=== PATIENT | male | born 1930 | race Caucasian/White ===

== ENCOUNTER 2016-05-13 19:04 | Emergency (ER) | payer OTHER ==
[~2016-05-13] VITALS: Ht 175.3 cm; Wt 80.0 kg
[~2016-05-13 19:04] MED LIST: HYDR-3288 PO; METO25TA3 PO; WALKER/ADULT/FO1 MIS; XARE10TA PO
[2016-05-13 19:21] VITALS: BP 133/85; PULSE 104; RESP 20; TEMP 98.2; O2SAT 95
[2016-05-13] MEDS ORDERED: MEMA21CA PO (21:18)
[2016-05-13] MEDS ORDERED: REME15TA PO (21:18)
[2016-05-13] MEDS ORDERED: SODIUM CHLORID 0.9% 500 ML INJ 500 ML IV ONE (21:45)
--- NOTE | 2016-05-13 21:51 | PD ---
HPI Chief Complaint: General Weakness Time Seen by Provider: 21:17 Travel History International Travel<30 days: No Contact w/Intl Traveler<30days: No Traveled to known affect area: No History of Present Illness HPI The patient is an 86 year old male who presents to the [facility] emergency department with a history of frequent falls, with reportedly falling prior to arrival. The patient himself is unable to provide any history. He reports that he does not know why he is in the emergency department. The patient is noted to have dried blood on his lips. The patient is noted to have a 1 cm laceration to the right side of his upper lip in the mucosa. The patient is noted to have poor dentition. He denies feeling any loosening of his teeth. The patient adamantly refuses to have any sutures placed in his laceration. He reports that he prefers to have this heal on its own. Patient cannot recall whether he tripped and fell. The patient is noted to have an older appearing bruise with palpable hematoma in the submandibular area. The patient according to the record is on Xarelto. The patient denies having any pain. The patient reports that he just wants to sleep. The patient was able to roll himself from his right side onto his back. The patient on examination is noted to have swelling and ecchymosis to the right hand. This is touched he does report having pain. He is unsure when this occurred. He denies having any lower extremity pain. He has full range of motion of his legs. According to the patient's shelter record he does have a history of dementia. [facility] Past Medical History Narrative Medical The patient's past medical history is significant for a fall and December 2015 with associated rhabdomyolysis, dehydration, and a left femoral neck fracture, dementia, history of prostate cancer, history of skin cancer. Arthritis: No Asthma: No Autoimmune Disease: No Anxiety: No Depression: No Heart Rhythm Problems: No Cancer: Yes (SKIN CA, PROSTATE CA) Cardiovascular Problems: No High Cholesterol: No Chemotherapy: No Chest Pain: No Congestive Heart Failure: No COPD: No Cerebrovascular Accident: No Diabetes: No Diminished Hearing: No Endocrine: No GERD: No Genitourinary: Yes Hiatal Hernia: No Immune Disorder: No Kidney Stones: No Musculoskeletal: No Neurologic: Yes (RECENT FORGETFULNESS/CONFUSION) Psychiatric: No Reproductive: No Respiratory: No Migraines: No Radiation Therapy: No Renal Failure: No Seizures: No Sickle Cell Disease: No Sleep Apnea: No Thyroid Disease: No Ulcer: No Past Surgical History Narrative Surgical The patient's past surgical history is significant for skin cancer resection, left hip ORIF, cataract surgery bilaterally. Abdominal Surgery: No AICD: No Arteriovenous Shunt: No Cardiac Surgery: No Ear Surgery: No Endocrine Surgery: No Eye Surgery: Yes (BILATERAL CATARACT REMOVAL) Genitourinary Surgery: No Gynecologic Surgery: No Insulin Pump: No Joint Replacement: Yes (LEFT BIPOLAR HIP ) Oral Surgery: No Pacemaker: No Thoracic Surgery: No Other Surgery: Yes (SKIN CANCERS) Social History Alcohol Use: Yes (BEER AND WINE IN MODERATION) Tobacco Use: No Substance Use: No Allergies-Medications (Allergen,Severity, Reaction): Coded Allergies: No Known Allergies (Verified , 05/13/16) Reported Meds & Prescriptions Reported Meds & Active Scripts Active Metoprolol Tartrate 25 Mg Tab 25 Mg PO Q12HR Walker/Adult/Folding (Device) 1 Mis Mis 1 Ea .ROUTE DIRECTED Xarelto (Rivaroxaban) 10 Mg Tab 10 Mg PO DAILY Reported Namenda Xr (Memantine) 21 Mg Caper 21 Mg PO DAILY Remeron (Mirtazapine) 15 Mg Tab 15 Mg PO HS Review of Systems Except as stated in HPI: all other systems reviewed are Neg General / Constitutional: No: Fever Eyes: No: Visual changes HENT: Positive: Neck Pain, Other (pain in the submandibular area), No: Headaches, Neck Stiffness Cardiovascular: No: Chest Pain or Discomfort Respiratory: No: Shortness of Breath Gastrointestinal: No: Nausea, Vomiting, Diarrhea, Abdominal Pain Genitourinary: No: Dysuria Musculoskeletal: No: Pain Skin: No Rash Neurologic: No: Weakness, Focal Abnormalities, Change in Mentation, Slurred Speech, Sensory Disturbance Psychiatric: No: Depression Endocrine: No: Polydipsia Hematologic/Lymphatic: No: Easy Bruising Physical Exam Narrative General: The patient is a well-developed well-nourished male in no acute distress. Head and Neck exam: Head is normocephalic, with evidence of trauma to the face, some older appearing trauma is noted with an older appearing bruise underneath the chin with a palpable large hematoma in the submandibular area. Eyes: EOMI, pupils are equal round and reactive to light. Nose: Midline septum with pink mucous membranes Mouth: Dentition is noted to be poor on examination, however no palpable loosening of teeth. The patient has a less than 1 cm laceration to the right upper lateral lip. The patient refuses to have this sutured. On examination of the lower lip the patient is noted to have abrasions. Moist mucus membranes. Posterior oropharynx is not erythematous. No tonsillar hypertrophy. Uvula midline. Airway patent. Neck: No palpable lymphadenopathy. No nuchal rigidity. No thyromegaly. Cardiovascular: Tachycardia in the low 100 without murmurs, gallops, or rubs. Lungs: Clear to auscultation bilaterally. No wheezes, rhonchi, or rales. Abdomen: Soft, without tenderness to palpation in all 4 quadrants of the abdomen. No guarding, rebound, or rigidity. Normal bowel sounds are audible. No tenderness on palpation of McBurney's point. Extremities: No clubbing or cyanosis. The patient has some edema and ecchymosis to the right hand with tenderness on palpation of the third fourth and fifth metacarpal. He has bruising on the dorsum of the hand and the volar surface of the hand. 2+ pulses in all 4 extremities. The patient has no lower extremity pain on palpation. No shortening or rotation. No loss of range of motion. No pain on pelvic rock. Back: No spinous process tenderness to palpation. No costovertebral angle tenderness to palpation. Neurologic Exam: Cranial nerves 2-12 were intact on exam. Strength is 5/5 in all 4 extremities. No sensory deficits noted. Data Data Last Documented VS Vital Signs Date Time Temp Pulse Resp B/P Pulse Ox O2 Delivery O2 Flow Rate FiO2 05/13/16 22:16 14 100 Room Air 05/13/16 19:21 98.2 104 133/85 Orders Electrocardiogram (05/13/16 21:35) Complete Blood Count With Diff (05/13/16 21:35) Comprehensive Metabolic Panel (05/13/16 21:35) Creatine Kinase (Cpk) (05/13/16 21:35) Ckmb (Isoenzyme) Profile (05/13/16 21:35) Troponin I (05/13/16 21:35) B-Type Natriuretic Peptide (05/13/16 21:35) Prothrombin Time / Inr (Pt) (05/13/16 21:35) Act Partial Throm Time (Ptt) (05/13/16 21:35) Magnesium (Mg) (05/13/16 21:35) Chest, Single Ap (05/13/16 21:35) Ct Brain W/O Iv Contrast(Rout) (05/13/16 21:35) Pelvis, Ap Only (Routine) (05/13/16 21:35) Iv Access Insert/Monitor (05/13/16 21:35) Ecg Monitoring (05/13/16 21:35) Oximetry (05/13/16 21:35) Hand, Complete (Eof6pda) (05/13/16 21:35) Ct Cerv Spine W/O Contrast (05/13/16 ) Ct Facial Bones W/O Iv Cont (05/13/16 ) Sodium Chlorid 0.9% 500 Ml Inj (Ns 500 M (05/13/16 21:45) Urinalysis - C+S If Indicated (05/13/16 21:56) Ct Thorax/ Chest W Iv Contrast (05/13/16 22:32) Splint Or Brace Apply/Monitor (05/13/16 22:34) Cefazolin 2 Gm Premix (Ancef 2 Gm Premix (05/13/16 22:45) Ohsk-Ggu-Uyafny (Booster) Inj (Boostrix (05/13/16 22:45) CKMB (05/13/16 21:55) CKMB% (05/13/16 21:55) Iohexol 350 Inj (Omnipaque 350 Inj) (05/13/16 22:56) Wound Care (05/13/16 23:51) Labs Laboratory Tests Test 05/13/16 05/13/16 21:55 22:00 White Blood Count 12.6 TH/MM3 Red Blood Count 3.87 MIL/MM3 Hemoglobin 11.7 GM/DL Hematocrit 36.2 % Mean Corpuscular Volume 93.5 FL Mean Corpuscular Hemoglobin 30.4 PG Mean Corpuscular Hemoglobin 32.5 % Concent Red Cell Distribution Width 13.6 % Platelet Count 165 TH/MM3 Mean Platelet Volume 9.0 FL Neutrophils (%) (Auto) 77.8 % Lymphocytes (%) (Auto) 13.7 % Monocytes (%) (Auto) 8.0 % Eosinophils (%) (Auto) 0.2 % Basophils (%) (Auto) 0.3 % Neutrophils # (Auto) 9.8 TH/MM3 Lymphocytes # (Auto) 1.7 TH/MM3 Monocytes # (Auto) 1.0 TH/MM3 Eosinophils # (Auto) 0.0 TH/MM3 Basophils # (Auto) 0.0 TH/MM3 CBC Comment DIFF FINAL Differential Comment Prothrombin Time 12.0 SEC Prothromb Time International 1.1 RATIO Ratio Activated Partial 25.8 SEC Thromboplast Time Sodium Level 139 MEQ/L Potassium Level 4.0 MEQ/L Chloride Level 104 MEQ/L Carbon Dioxide Level 26.0 MEQ/L Anion Gap 9 MEQ/L Blood Urea Nitrogen 25 MG/DL Creatinine 1.22 MG/DL Estimat Glomerular Filtration 56 ML/MIN Rate Random Glucose 106 MG/DL Calcium Level 8.8 MG/DL Magnesium Level 2.1 MG/DL Total Bilirubin 0.4 MG/DL Aspartate Amino Transf 24 U/L (AST/SGOT) Alanine Aminotransferase 38 U/L (ALT/SGPT) Alkaline Phosphatase 86 U/L Total Creatine Kinase 122 U/L Creatine Kinase MB 1.1 NG/ML Troponin I LESS THAN 0.02 NG/ML B-Type Natriuretic Peptide 81 PG/ML Total Protein 7.4 GM/DL Albumin 3.1 GM/DL Urine Color YELLOW Urine Turbidity CLEAR Urine pH 5.5 Urine Specific [place] 1.021 Urine Protein TRACE mg/dL Urine Glucose (UA) NEG mg/dL Urine Ketones NEG mg/dL Urine Occult Blood MOD Urine Nitrite NEG Urine Bilirubin NEG Urine Urobilinogen LESS THAN 2.0 MG/DL Urine Leukocyte Esterase NEG Urine RBC 5 /hpf Urine WBC 1 /hpf Urine Mucus FEW /lpf Microscopic Urinalysis Comment CULT NOT INDICATED MDM Medical Decision Making Medical Screen Exam Complete: Yes Emergency Medical Condition: Yes Medical Record Reviewed: Yes Interpretation(s) Last Impressions Chest CT 05/13/162231 Signed Impressions: Service Date/Time: Friday, May 13, 2016 22:53 - CONCLUSION: 1. No evidence for mediastinal or lung mass. 2. Atherosclerosis. 3. Scattered areas of atelectasis. 4. Indeterminate right upper pole renal mass is incompletely characterized on this study. This would be best assessed with outpatient CT abdomen with and without contrast for further characterization. Frandy Shah MD Pelvis X-Ray 05/13/162134 Signed Impressions: Service Date/Time: Friday, May 13, 2016 21:58 - CONCLUSION: 1. No acute fracture or joint dislocation. 2. Left hip prosthesis in place. Ilan Grace MD Head CT 05/13/162134 Signed Impressions: Service Date/Time: Friday, May 13, 2016 22:05 - CONCLUSION: 1. No focal or acute intracranial hemorrhage. 2. Bilateral cortical atrophy. 3. 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 4. No significant changes compared to the prior study. Ilan Grace MD Hand X-Ray 05/13/162134 Signed Impressions: Service Date/Time: Friday, May 13, 2016 21:59 - CONCLUSION: There is a fracture involving the base of the fifth metacarpal. Ilan Grace MD Chest X-Ray 05/13/162134 Signed Impressions: Service Date/Time: Friday, May 13, 2016 21:57 - CONCLUSION: 1. Questionable widening of the mediastinum. Recommend CT thorax for further evaluation. 2. No acute pulmonary infiltrates. Ilan Grace MD Maxillofacial CT 05/13/16 Signed Impressions: Service Date/Time: Friday, May 13, 2016 22:05 - CONCLUSION: No acute bony fracture. Ilan Grace MD Cervical Spine CT 05/13/16 Signed Impressions: Service Date/Time: Friday, May 13, 2016 22:05 - CONCLUSION: 1. No acute bony fracture. 2. Primary bony degenerative changes, disc degeneration and disc space narrowing at multiple levels throughout the cervical spine. 3. Facet arthritis at multiple levels. Ilan Grace MD Differential Diagnosis Intracranial hemorrhage, versus cervical spine fracture, versus facial bone fracture, versus rhabdomyolysis, versus dehydration, versus pelvic fracture, versus intrathoracic abnormality, versus right hand fracture, versus contusion of the right hand Narrative Course During the course of the patients emergency department visit, the patients history, examination, and differential diagnosis were reviewed with the patient. The patient had IV access obtained and blood work sent for analysis. The patient was placed on a color television console monitor with oximetry and blood pressure monitoring. An EKG was ordered. The patient's electronic medical record is reviewed for his history. EKG shows a sinus tachycardia with a rate of 1:15, right bundle branch block with a left anterior fascicular block. This is compared to a prior EKG done at this facility in no acute changes are noted. The patient was provided normal saline a 500 mL bolus 1. The patients laboratory studies were reviewed and remarkable for a white count of 12.6, hemoglobin 11.7, platelets 165 with 77.8 neutrophils, CMP is remarkable for a BUN of 25, GFR 56, cardiac enzymes are negative, BNP is 81, PT 12, PTT 25.8. Radiology studies were reviewed and remarkable for a chest x-ray that showed evidence of what appeared to be a widened mediastinum, therefore a chest CT was ordered. Chest CT shows no evidence for mediastinal or lung mass, atherosclerosis is noted, scattered areas of atelectasis, indeterminate right upper pole renal mass is incompletely characterized, this could be further assessed with an outpatient CT scan of the abdomen and pelvis with and without contrast for further characterization. A lab slip will be provided for this to be done as an outpatient with the patient's family wishes to pursue this. Right hand x-ray reveals a fracture involving the base of the fifth metacarpal. An ulnar gutter splint was applied. Pelvis x-ray shows no acute fracture or joint dislocation, left hip prosthesis is in place. CT scan of the brain shows no acute abnormality. 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 CT scan of the C-spine shows multilevel degenerative disc disease and facet arthritis, no acute abnormality. Maxillofacial CT shows no evidence of an acute bony fracture. The patient's wounds will be cleaned, antibiotic ointment applied. The patient was hydrated in the emergency department. The patient will be discharged home to follow-up with his primary care physician at the shelter. The patient was given the name of the outpatient orthopedic physician for follow-up, Dr. Pederson, regarding his right hand fracture. The patient is resting comfortably and feels better, is alert and in no distress. The patients results and examination findings were discussed with the patient. The repeat examination is unremarkable and benign. The history, exam, diagnostic testing, and current condition do not suggest any significant pathology to warrant further testing, continued ED treatment, admission, or surgical evaluation at this point. The vital signs have been stable. The patient does not have uncontrollable pain, intractable vomiting, or other significant symptoms. The patient's condition is stable and appropriate for discharge. The patient will pursue further outpatient evaluation with a primary care physician or other designated or consulting physician as indicated in the discharge instructions. The patient expressed understanding and was agreeable with this plan. Diagnosis Primary Impression: Fall Qualified Code: W19.XXXA - Fall, initial encounter Additional Impressions: Lip laceration Qualified Code: S01.511A - Lip laceration, initial encounter Fracture of fifth metacarpal bone of right hand Qualified Code: S62.346A - Closed nondisplaced fracture of base of fifth metacarpal bone of right hand, initial encounter Referrals: Kevin Pederson MD 1 week Primary Care Physician 2 days Additional Instructions: The nursing facility is instructed that they should address with the patient's primary care physician the fact that the patient is frequently falling and is anticoagulated which would be putting him at risk for intracranial hemorrhage. The patient is instructed to take Tylenol as needed for discomfort. The patient is given an outpatient lab slip for CT scan of the abdomen and pelvis with and without contrast for renal mass is him or his patient's family wished to pursue this. Med/Other Pt SpecificInfo: No Change to Meds Disposition: 03 DISCHARGE TO SNF Condition: Stable Zahraa Cruz MD May 13, 2016 21:51
[2016-05-13 22:16] VITALS: RESP 14; O2SAT 100
[2016-05-13 22:20] LABS: BLOOD, URINE MOD (NEG); COMMENT (UR) CULT NOT INDICATED; CULTURE IF INDICATED CULT NOT INDICATED; GLUCOSE,URINE NEG (NEG); KETONE, URINE NEG (NEG); MUCUS URINE FEW /lpf (OCC); NITRITE,URINE NEG (NEG); PH, URINE 5.5 (5.0-8.5); URINE COLOR YELLOW (YELLW/STRAW)
[2016-05-13 22:22] LABS: AUTOMATED NEUTROPHIL # 9.8 TH/MM3 (1.8-7.7); BASOPHIL % 0.3 % (0.0-2.0); EOSINOPHIL % 0.2 % (0.0-4.0); HEMATOCRIT 36.2 % (39.0-51.0); HEMO FLAGS DIFF FINAL; LYMPH % 13.7 % (9.0-44.0); LYMPHOCYTE # 1.7 TH/MM3 (1.0-4.8); MEAN CELL VOLUME 93.5 FL (80.0-100.0); MEAN CORPUSCULAR HEMOGLOBIN 30.4 PG (27.0-34.0); MEAN CORPUSCULAR HGB CONC 32.5 % (32.0-36.0); NEUT % 77.8 % (16.0-70.0); PLATELET COUNT 165 TH/MM3 (150-450); RED BLOOD COUNT 3.87 MIL/MM3 (4.50-5.90); RED CELL DISTRIBUTION WIDTH 13.6 % (11.6-17.2); WHITE BLOOD COUNT 12.6 TH/MM3 (4.0-11.0)
--- NOTE | 2016-05-13 22:22 | RADRPT ---
EXAM DATE/TIME: 05/13/2016 21:57 [facility] COMPARISON: CHEST SINGLE AP, January 15, 2016, 15:15. INDICATIONS : Evaluate chest for trauma, fell MEDICAL HISTORY : None. SURGICAL HISTORY : None. ENCOUNTER: Initial ACUITY: 1 day PAIN SCORE: 0/10 LOCATION: chest FINDINGS: A single view of the chest demonstrates the lungs to be symmetrically aerated without evidence of mas s, infiltrate or effusion. There appears to be some possible widening of the mediastinum compared to the prior exam of 01/15/2016. The heart size is within normal limits. There is an old fracture involv ing the lateral left seventh rib.. This fracture was present on the prior exam. CONCLUSION: 1. Questionable widening of the mediastinum. Recommend CT thorax for further evaluation. 2. No acute pulmonary infiltrates. Ilan Grace MD on May 13, 2016 at 22:18 Board Certified Radiologist. This report was verified electronically.
--- NOTE | 2016-05-13 22:26 | RADRPT ---
EXAM DATE/TIME: 05/13/2016 21:58 [facility] COMPARISON: No previous studies available for comparison. INDICATIONS : Evaluate pelvis for trauma MEDICAL HISTORY : None. SURGICAL HISTORY : Left hip arthroplasty ENCOUNTER: Initial ACUITY: 1 day PAIN SCORE: 0/10 LOCATION: Pelvis FINDINGS: A single frontal view of the pelvis demonstrates no evidence of fracture. The bony pelvic ring is in tact. Bony mineralization is normal. The soft tissues are intact. There is a left hip prosthesis in place. No joint dislocation. Degenerative changes lower lumbar spine. CONCLUSION: 1. No acute fracture or joint dislocation. 2. Left hip prosthesis in place. Ilan Grace MD on May 13, 2016 at 22:24 Board Certified Radiologist. This report was verified electronically.
--- NOTE | 2016-05-13 22:27 | RADRPT ---
EXAM DATE/TIME: 05/13/2016 21:59 [facility] COMPARISON: No previous studies available for comparison. INDICATIONS : Pain, swelling and abrasion right hand, fell MEDICAL HISTORY : None. SURGICAL HISTORY : None. ENCOUNTER: Initial ACUITY: 1 day PAIN SCORE: 10/10 LOCATION: Right Hand FINDINGS: Three view examination of the right hand demonstrates a fracture involving the base of the fifth meta carpal. The fracture appears to be nondisplaced. No joint dislocation is seen. There is osteopenia of the bony structures. There is soft tissue swelling along the dorsum of the hand. There are degenerat ruby changes involving the PIP and DIP joints. Vascular calcifications are noted. CONCLUSION: There is a fracture involving the base of the fifth metacarpal. Ilan Grace MD on May 13, 2016 at 22:24 Board Certified Radiologist. This report was verified electronically.
[2016-05-13 22:28] LABS: APTT (PATIENT) 25.8 SEC (24.3-30.1); INTERNATIONAL NORMALIZED RATIO 1.1 RATIO
--- NOTE | 2016-05-13 22:29 | RADRPT ---
EXAM DATE/TIME: 05/13/2016 22:05 [facility] COMPARISON: CT BRAIN W/O CONTRAST, January 15, 2016, 15:25. INDICATIONS : Fall with head trauma. RADIATION DOSE: 36.84 CTDIvol (mGy) MEDICAL HISTORY : Carcinoma, prostate. SURGICAL HISTORY : None. ENCOUNTER: Initial ACUITY: 1 day PAIN SCALE: 4/10 LOCATION: facial TECHNIQUE: Multiple contiguous axial images were obtained of the head. Using automated exposure control and adj ustment of the mA and/or kV according to patient size, radiation dose was kept as low as reasonably a chievable to obtain optimal diagnostic quality images. FINDINGS: CEREBRUM: The ventricles are normal for age. There is bilateral cortical atrophy. There is an old infarct in th e left thalamus. No evidence of midline shift, mass lesion, hemorrhage or acute infarction. No extra -axial fluid collections are seen. POSTERIOR FOSSA: The cerebellum and brainstem are intact. The 4th ventricle is midline. The cerebellopontine angle i s unremarkable. EXTRACRANIAL: The visualized portion of the orbits is intact. SKULL: The calvaria is intact. No evidence of skull fracture. CONCLUSION: 1. No focal or acute intracranial hemorrhage. 2. Bilateral cortical atrophy. 3. 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 4. No significant changes compared to the prior study. Ilan Grace MD on May 13, 2016 at 22:26 Board Certified Radiologist. This report was verified electronically.
--- NOTE | 2016-05-13 22:32 | RADRPT ---
EXAM DATE/TIME: 05/13/2016 22:05 [facility] COMPARISON: No previous studies available for comparison. INDICATIONS : Fall with head trauma and neck pain. RADIATION DOSE: 20.79 CTDIvol (mGy) MEDICAL HISTORY : Carcinoma, prostate. SURGICAL HISTORY : None. ENCOUNTER: Initial ACUITY: 1 day PAIN SCALE: 4/10 LOCATION: neck TECHNIQUE: Volumetric scanning of the cervical spine was performed. Multiplanar reconstructions in the sagittal, coronal and oblique axial planes were performed. Using automated exposure control and adjustment o f the mA and/or kV according to patient size, radiation dose was kept as low as reasonably achievable to obtain optimal diagnostic quality images. FINDINGS: VERTEBRAE: Normal vertebral body height. No acute bony fracture. Primary bony degenerative changes, disc degener ation and disc space narrowing throughout the entire cervical spine. ALIGNMENT: No evidence of subluxation. C2-C3: The bony spinal canal is normal in size. No evidence of disc bulge or herniation. The neural forami na are bilaterally patent. C3-C4: The bony spinal canal is normal in size. No evidence of disc bulge or herniation. Narrowing of the n eural foramina bilaterally from facet arthritis. C4-C5: The bony spinal canal is normal in size. No evidence of disc bulge or herniation. Narrowing of the l eft neural foramina from facet arthritis. Right neural foramina is patent. C5-C6: Broad-based bulging with disc osteophyte complex. Narrowing of the neural foramina bilaterally. C6-C7: Broad-based bulging with disc osteophyte complex. Mild narrowing of the neural foramina bilaterally. C7-T1: The bony spinal canal is normal in size. No evidence of disc bulge or herniation. The neural forami na are bilaterally patent. CONCLUSION: 1. No acute bony fracture. 2. Primary bony degenerative changes, disc degeneration and disc space narrowing at multiple levels t hroughout the cervical spine. 3. Facet arthritis at multiple levels. Ilan Grace MD on May 13, 2016 at 22:28 Board Certified Radiologist. This report was verified electronically.
[2016-05-13 22:36] LABS: ANION GAP 9 MEQ/L (5-15); AST (GOT) 24 U/L (15-37); BLOOD UREA NITROGEN 25 MG/DL (7-18); CHLORIDE 104 MEQ/L (98-107); GLOMERULAR FILTRATION RATE 56 ML/MIN (>89); MAGNESIUM 2.1 MG/DL (1.5-2.5); SODIUM (NA) 139 MEQ/L (136-145)
--- NOTE | 2016-05-13 22:37 | RADRPT ---
EXAM DATE/TIME: 05/13/2016 22:05 [facility] COMPARISON: No previous studies available for comparison. INDICATIONS : Fall with facial trauma. RADIATION DOSE: 64.46 CTDIvol (mGy) MEDICAL HISTORY : Carcinoma, prostate. SURGICAL HISTORY : None. ENCOUNTER: Initial ACUITY: 1 day PAIN SCORE: 4/10 LOCATION: facial TECHNIQUE: Volumetric scanning of the facial bones was performed. Using automated exposure control and adjustme nt of the mA and/or kV according to patient size, radiation dose was kept as low as reasonably achiev able to obtain optimal diagnostic quality images. FINDINGS: The facial bones are grossly intact. No acute fracture or joint dislocation is demonstrated. Chronic sinus disease in the right maxillary sinus. Otherwise, the paranasal sinuses are clear. No air-fluid levels are demonstrated. The mandible grossly intact. CONCLUSION: No acute bony fracture. Ilan Grace MD on May 13, 2016 at 22:34 Board Certified Radiologist. This report was verified electronically.
[2016-05-13 22:41] LABS: ALKALINE PHOSPHATASE 86 U/L (45-117); ALT (GPT) 38 U/L (12-78); CREATINE KINASE 122 U/L (39-308); TOTAL BILIRUBIN ADULT 0.4 MG/DL (0.2-1.0)
[2016-05-13] MEDS ORDERED: ceFAZolin 2 GM PREMIX 50 ML IV ONE (22:45)
[2016-05-13] MEDS ORDERED: DIPHTH/TETANUS/ACEL PERTUSSIS (BOOSTER) 0.5 ML VIAL/PFS IM ONE (22:45)
[2016-05-13 22:53] LABS: CKMB 1.1 NG/ML (0.5-3.6)
[2016-05-13] MEDS ORDERED: IOHEXOL 350 MG/ML 10 ML VIAL (for RAD DIAG) IV ONE (22:56)
--- NOTE | 2016-05-13 23:12 | RADRPT ---
EXAM DATE/TIME: 05/13/2016 22:53 [facility] COMPARISON: CHEST SINGLE AP, May 13, 2016, 21:57. INDICATIONS : Abnormal chest x-ray. IV CONTRAST: 75 cc Omnipaque 350 (iohexol) IV RADIATION DOSE: 7.39 CTDIvol (mGy) MEDICAL HISTORY : Carcinoma, prostate. SURGICAL HISTORY : None. ENCOUNTER: Initial ACUITY: 1 day PAIN SCALE: 3/10 LOCATION: Bilateral chest TECHNIQUE: Volumetric scanning of the chest was performed. Using automated exposure control and adjustment of t he mA and/or kV according to patient size, radiation dose was kept as low as reasonably achievable to obtain optimal diagnostic quality images. FINDINGS: There is a calcification of the aorta identified. The adrenal glands are normal. Coronary artery calc ification is seen. No pleural or pericardial effusions are identified. There is subsegmental atelecta sis in the right lower lobe, right upper lobe and middle lobe. There is no consolidation or effusion. No masses are seen. There are degenerative changes of the spine noted. No adenopathy or aneurysm. At the upper pole of the right kidney, a 1.7 cm mass is present measuring 53 Hounsfield units. The diff erential diagnosis includes a solid renal neoplasm or hemorrhagic/proteinaceous cyst. CONCLUSION: 1. No evidence for mediastinal or lung mass. 2. Atherosclerosis. 3. Scattered areas of atelectasis. 4. Indeterminate right upper pole renal mass is incompletely characterized on this study. This would be best assessed with outpatient CT abdomen with and without contrast for further characterization. Frandy Shah MD on May 13, 2016 at 23:07 Board Certified Radiologist. This report was verified electronically.
[2016-05-14] MEDS ORDERED: LORazepam 0.5 MG TAB PO ONE (01:45)
[2016-05-14 07:25] VITALS: BP 165/92; PULSE 88; RESP 17; O2SAT 99
--- NOTE | 2016-05-14 10:04 | EKG ---
Date Performed: 05/13/2016 Time Performed: 23:38:30 PTAGE: 86 years EKG: SINUS TACHYCARDIA RIGHT BUNDLE BRANCH BLOCK LEFT ANTERIOR FASCICULAR BLOCK POSSIBLE SEPTAL MYOCARDIAL INFARCTION ABNORMAL ECG PREVIOUS TRACING : 01/15/2016 18.22 DOCTOR: Glenn Potts Interpretating Date/Time 05/14/2016 10:01:23
== END 2016-05-14 15:03 ==
LOC: NEPC 19:04 → NEPA 05-14 15:03
DX: S62.346A Nondisplaced fracture of base of fifth metacarpal bone, right hand, initial encounter for closed fracture (principal); S01.511A Laceration without foreign body of lip, initial encounter; R94.31 Abnormal electrocardiogram [ECG] [EKG]; W01.0XXA Fall on same level from slipping, tripping and stumbling without subsequent striking against object, initial encounter; Y93.9 Activity, unspecified; Y92.129 Unspecified place in nursing home as the place of occurrence of the external cause; Z91.81 History of falling; Z23 Encounter for immunization
CPT/HCPCS: 29125; 70450; 70486; 71010; 71260; 72125; 72170; 73130; 80053; 81001; 82550; 82552; 83735; 83880; 84484; 85025; 85610; 85730; 90471; 90715; 93005; 96374; 99285; J0690; J7040; Q9967

== ENCOUNTER 2017-02-13 13:02 | Emergency (ER) | payer OTHER ==
[~2017-02-13] VITALS: Ht 177.8 cm; Wt 75.0 kg
[~2017-02-13 13:02] MED LIST changes: -HYDR-3288 PO; +MEMA21CA PO; +REME15TA PO
[2017-02-13 13:13] VITALS: BP 169/81; PULSE 87; RESP 17; TEMP 97.9; O2SAT 97
[2017-02-13] MEDS ORDERED: SODIUM CHLORIDE 0.9% FLUSH 10 ML FLUSH IVF PRN (13:15)
[2017-02-13 13:16] VITALS: O2SAT 95
--- NOTE | 2017-02-13 13:18 | PD ---
HPI Chief Complaint: Fall Time Seen by Provider: 13:11 Travel History International Travel<30 days: No Contact w/Intl Traveler<30days: No History of Present Illness HPI 87-year-old male resident of [facility] with history of dementia, is brought to the emergency department via EMS status post unwitnessed fall in bathroom. Patient is noted to have abrasions to the top of the scalp, and is complaining of right toe pain. He does not recall the incident. He complains of no headache, nausea, vomiting, or dizziness. Denies neck pain. He denies thoracic or abdominal pain. He has no complaints of upper extremity pain or lower extremity except for the right great toe. Patient is a poor historian. He has no known drug allergies PFSH Past Medical History Hx Anticoagulant Therapy: Yes (Xarelto) Arthritis: No Asthma: No Autoimmune Disease: No Anxiety: No Depression: No Heart Rhythm Problems: No Cancer: Yes (SKIN CA, PROSTATE CA) Cardiovascular Problems: Yes (HTN) High Cholesterol: No Chemotherapy: No Chest Pain: No Congestive Heart Failure: No COPD: No Cerebrovascular Accident: No Diabetes: No Diminished Hearing: No Endocrine: No GERD: No Genitourinary: Yes Hiatal Hernia: No Immune Disorder: No Kidney Stones: No Musculoskeletal: No Neurologic: Yes (RECENT FORGETFULNESS/CONFUSION) Psychiatric: No Reproductive: No Respiratory: No Migraines: No Radiation Therapy: No Renal Failure: No Seizures: No Sickle Cell Disease: No Sleep Apnea: No Thyroid Disease: No Ulcer: No Past Surgical History Abdominal Surgery: No AICD: No Arteriovenous Shunt: No Cardiac Surgery: No Ear Surgery: No Endocrine Surgery: No Eye Surgery: Yes (BILATERAL CATARACT REMOVAL) Genitourinary Surgery: No Gynecologic Surgery: No Insulin Pump: No Joint Replacement: Yes (LEFT BIPOLAR HIP ) Oral Surgery: No Pacemaker: No Thoracic Surgery: No Other Surgery: Yes (SKIN CANCERS) Social History Alcohol Use: Yes (BEER AND WINE IN MODERATION) Tobacco Use: No Substance Use: No Allergies-Medications (Allergen,Severity, Reaction): Coded Allergies: No Known Allergies (Verified Adverse Reaction, Unknown, 02/13/17) Reported Meds & Prescriptions Reported Meds & Active Scripts Active Metoprolol Tartrate 25 Mg Tab 25 Mg PO Q12HR Walker/Adult/Folding (Device) 1 Mis Mis 1 Ea .ROUTE DIRECTED Xarelto (Rivaroxaban) 10 Mg Tab 10 Mg PO DAILY Reported Namenda Xr (Memantine) 21 Mg Caper 21 Mg PO DAILY Remeron (Mirtazapine) 15 Mg Tab 15 Mg PO HS Review of Systems ROS Limitations: Clinical Condition, Poor Historian General / Constitutional: No: Fever Eyes: No: Visual changes HENT: No: Headaches Cardiovascular: No: Chest Pain or Discomfort Respiratory: No: Shortness of Breath Gastrointestinal: No: Abdominal Pain Genitourinary: No: Dysuria Musculoskeletal: No: Pain Skin: No Rash Neurologic: No: Weakness Psychiatric: No: Depression Endocrine: No: Polydipsia Hematologic/Lymphatic: No: Easy Bruising Physical Exam Exam Limitations: Clinical Condition, Poor Historian Narrative GENERAL: The patient appears comfortable and in no acute distress. SKIN: Warm and dry. Normal color. Normal turgor. Patient has several superficial abrasions to the top scalp. HEAD: Atraumatic. Normocephalic. No significant tenderness with palpation. EYES: Pupils equal and round. No scleral icterus. No injection or drainage. ENT: No nasal bleeding or discharge. Mucous membranes pink and moist. No dental injury. TMs are clear. Pharynx is clear. Airway is patent. NECK: Trachea midline. No bony tenderness or step-off. Range of motion is full and supple without tenderness. CARDIOVASCULAR: Regular rate and rhythm. RESPIRATORY: No accessory muscle use. Clear to auscultation. Breath sounds equal bilaterally. GASTROINTESTINAL: Abdomen soft, non-tender, nondistended. Hepatic and splenic margins not palpable. MUSCULOSKELETAL: Extremities without clubbing, cyanosis, or edema. No obvious deformities. Patient complains of pain at the base of the right great toe with palpation otherwise no obvious signs of injury. NEUROLOGICAL: Awake and alert. No obvious cranial nerve deficits. Motor grossly within normal limits. Five out of 5 muscle strength in the arms and legs. Normal speech. PSYCHIATRIC: Appropriate mood and affect; insight and judgment normal. Data Data Last Documented VS Vital Signs Date Time Temp Pulse Resp B/P (MAP) Pulse Ox O2 Delivery O2 Flow Rate FiO2 02/13/17 13:16 95 Room Air 02/13/17 13:13 97.9 87 17 Orders Orders Electrocardiogram (02/13/17 13:11) Complete Blood Count With Diff (02/13/17 13:11) Comprehensive Metabolic Panel (02/13/17 13:11) Magnesium (Mg) (02/13/17 13:11) Ckmb (Isoenzyme) Profile (02/13/17 13:11) Troponin I (02/13/17 13:11) Act Partial Throm Time (Ptt) (02/13/17 13:11) Prothrombin Time / Inr (Pt) (02/13/17 13:11) Urinalysis - C+S If Indicated (02/13/17 13:11) Chest, Single Ap (02/13/17 13:11) Ct Brain W/O Iv Contrast(Rout) (02/13/17 13:11) Ecg Monitoring (02/13/17 13:11) Iv Access Insert/Monitor (02/13/17 13:11) Oximetry (02/13/17 13:11) Sodium Chloride 0.9% Flush (Ns Flush) (02/13/17 13:15) Cath For Specimen (02/13/17 13:11) Foot, Complete ([id number]) (02/13/17 13:11) Sodium Chlorid 0.9% 500 Ml Inj (Ns 500 M (02/13/17 13:30) CKMB (02/13/17 13:24) CKMB% (02/13/17 13:24) Labs Laboratory Tests Test 02/13/17 13:24 02/13/17 13:34 White Blood Count 10.1 TH/MM3 Red Blood Count 4.28 MIL/MM3 Hemoglobin 13.2 GM/DL Hematocrit 39.8 % Mean Corpuscular Volume 92.9 FL Mean Corpuscular Hemoglobin 30.8 PG Mean Corpuscular Hemoglobin Concent 33.2 % Red Cell Distribution Width 13.5 % Platelet Count 182 TH/MM3 Mean Platelet Volume 8.4 FL Neutrophils (%) (Auto) 81.5 % Lymphocytes (%) (Auto) 7.7 % Monocytes (%) (Auto) 9.4 % Eosinophils (%) (Auto) 1.2 % Basophils (%) (Auto) 0.2 % Neutrophils # (Auto) 8.2 TH/MM3 Lymphocytes # (Auto) 0.8 TH/MM3 Monocytes # (Auto) 0.9 TH/MM3 Eosinophils # (Auto) 0.1 TH/MM3 Basophils # (Auto) 0.0 TH/MM3 CBC Comment DIFF FINAL Differential Comment Prothrombin Time 11.9 SEC Prothromb Time International Ratio 1.2 RATIO Activated Partial Thromboplast Time 29.2 SEC Blood Urea Nitrogen 20 MG/DL Creatinine 1.46 MG/DL Random Glucose 136 MG/DL Total Protein 8.2 GM/DL Albumin 3.6 GM/DL Calcium Level 8.9 MG/DL Magnesium Level 2.3 MG/DL Alkaline Phosphatase 83 U/L Aspartate Amino Transf (AST/SGOT) 23 U/L Alanine Aminotransferase (ALT/SGPT) 25 U/L Total Bilirubin 0.6 MG/DL Sodium Level 137 MEQ/L Potassium Level 4.2 MEQ/L Chloride Level 103 MEQ/L Carbon Dioxide Level 25.1 MEQ/L Anion Gap 9 MEQ/L Estimat Glomerular Filtration Rate 46 ML/MIN Total Creatine Kinase 242 U/L Creatine Kinase MB 2.1 NG/ML Troponin I LESS THAN 0.02 NG/ML Urine Color YELLOW Urine Turbidity CLEAR Urine pH 5.5 Urine Specific [place] 1.021 Urine Protein 30 mg/dL Urine Glucose (UA) NEG mg/dL Urine Ketones NEG mg/dL Urine Occult Blood MOD Urine Nitrite NEG Urine Bilirubin NEG Urine Urobilinogen LESS THAN 2.0 MG/DL Urine Leukocyte Esterase NEG Urine RBC 12 /hpf Urine WBC 2 /hpf Urine Squamous Epithelial Cells <1 /hpf Urine Hyaline Casts 12 /lpf Urine Mucus FEW /lpf Microscopic Urinalysis Comment CULT NOT INDICATED MDM Medical Decision Making Medical Screen Exam Complete: Yes Emergency Medical Condition: Yes Medical Record Reviewed: Yes Differential Diagnosis Syncopal episode. Unwitnessed fall. Scalp contusion. Scalp abrasion. Right great toe sprain. Possible fracture. Narrative Course Patient appears medically stable at time of exam. Labs ordered including CBC, CMP, cardiac panel, coagulation studies, and urinalysis. CT of the head is ordered. X-ray of the right great toe was ordered. Chest x-ray was ordered. IV access was obtained patient is given 500 mL of normal saline bolus. X-rays of the chest and foot are both negative. CBC is unremarkable. Coagulation studies show PT of 11.9, INR 1.2. Chemistry shows BUN 20, creatinine 1.46, GFR 46. Otherwise no significant findings. Last creatinine on record was 1.22. Urinalysis is unremarkable. Head CT shows no acute findings per radiologist. Patient is felt to be stable for discharge to the nursing facility. Diagnosis Primary Impression: Fall Qualified Codes: W19.XXXA - Unspecified fall, initial encounter Referrals: Primary Care Physician Patient Instructions: Fall Prevention for Older Adults (DC), General Instructions Additional Instructions: IV access was obtained patient is given 500 mL of normal saline bolus. X-rays of the chest and foot are both negative. CBC is unremarkable. Coagulation studies show PT of 11.9, INR 1.2. Chemistry shows BUN 20, creatinine 1.46, GFR 46. Otherwise no significant findings. Last creatinine on record was 1.22. Urinalysis is unremarkable. Head CT shows no acute findings per radiologist. Patient is felt to be stable for discharge to the nursing facility. Med/Other Pt SpecificInfo: No Change to Meds Disposition: 01 DISCHARGE HOME Condition: Stable Herman Biswas Feb 13, 2017 13:18
[2017-02-13] MEDS ORDERED: SODIUM CHLORID 0.9% 500 ML INJ 500 ML IV ONE (13:30)
[2017-02-13 14:04] LABS: AUTOMATED NEUTROPHIL # 8.2 TH/MM3 (1.8-7.7); BASOPHIL % 0.2 % (0.0-2.0); EOSINOPHIL # 0.1 TH/MM3 (0-0.4); EOSINOPHIL % 1.2 % (0.0-4.0); HEMATOCRIT 39.8 % (39.0-51.0); HEMO FLAGS DIFF FINAL; LYMPH % 7.7 % (9.0-44.0); LYMPHOCYTE # 0.8 TH/MM3 (1.0-4.8); MEAN CELL VOLUME 92.9 FL (80.0-100.0); MEAN CORPUSCULAR HEMOGLOBIN 30.8 PG (27.0-34.0); MEAN CORPUSCULAR HGB CONC 33.2 % (32.0-36.0); MONO % 9.4 % (0.0-8.0); NEUT % 81.5 % (16.0-70.0); PLATELET COUNT 182 TH/MM3 (150-450); RED BLOOD COUNT 4.28 MIL/MM3 (4.50-5.90); RED CELL DISTRIBUTION WIDTH 13.5 % (11.6-17.2); WHITE BLOOD COUNT 10.1 TH/MM3 (4.0-11.0)
[2017-02-13 14:08] LABS: BLOOD, URINE MOD (NEG); GLUCOSE,URINE NEG (NEG); HYALINE CAST, URINE 12 /lpf (RARE); KETONE, URINE NEG (NEG); MUCUS URINE FEW /lpf (OCC); NITRITE,URINE NEG (NEG); PH, URINE 5.5 (5.0-8.5); SQUAMOUS EPITHELIAL CELL URINE <1 /hpf (0-5); URINE COLOR YELLOW (YELLW/STRAW)
[2017-02-13 14:09] LABS: COMMENT (UR) CULT NOT INDICATED; CULTURE IF INDICATED CULT NOT INDICATED
--- NOTE | 2017-02-13 14:11 | RADRPT ---
EXAM DATE/TIME: 02/13/2017 13:51 [facility] COMPARISON: CHEST SINGLE AP, May 13, 2016, 21:57. INDICATIONS : Cough. MEDICAL HISTORY : Carcinoma, prostate. SURGICAL HISTORY : None. ENCOUNTER: Initial ACUITY: 1 day PAIN SCORE: 5/10 LOCATION: Bilateral chest FINDINGS: A single view of the chest demonstrates the lungs to be symmetrically aerated without evidence of mas s, infiltrate or effusion. The cardiomediastinal contours are unremarkable. Osseous structures are intact. CONCLUSION: 1. No acute cardiopulmonary disease. Brett Dover MD on February 13, 2017 at 14:08 Board Certified Radiologist. This report was verified electronically.
--- NOTE | 2017-02-13 14:12 | RADRPT ---
EXAM DATE/TIME: 02/13/2017 13:54 [facility] COMPARISON: No previous studies available for comparison. INDICATIONS : Left foot and 1st toe pain due unwitnessed fall. MEDICAL HISTORY : Carcinoma, prostate. SURGICAL HISTORY : None. ENCOUNTER: Initial ACUITY: 1 day PAIN SCORE: 5/10 LOCATION: Left Foot. FINDINGS: Three view examination of the left foot demonstrates no soft tissue swelling, dislocation, or fractur e. The tarsal bones appear intact. The interphalangeal and metatarsophalangeal joints are intact. The calcaneus is intact. Bony mineralization is normal. CONCLUSION: Unremarkable examination of the left foot. Delonte Barnes MD on February 13, 2017 at 14:10 Board Certified Radiologist. This report was verified electronically.
[2017-02-13 14:15] LABS: APTT (PATIENT) 29.2 SEC (24.3-30.1); INTERNATIONAL NORMALIZED RATIO 1.2 RATIO; PROTHROMBIN TIME - PATIENT 11.9 SEC (9.8-11.6)
[2017-02-13 14:21] LABS: ANION GAP 9 MEQ/L (5-15); AST (GOT) 23 U/L (15-37); BICARBONATE 25.1 MEQ/L (21.0-32.0); BLOOD UREA NITROGEN 20 MG/DL (7-18); CHLORIDE 103 MEQ/L (98-107); GLOMERULAR FILTRATION RATE 46 ML/MIN (>89); MAGNESIUM 2.3 MG/DL (1.5-2.5); POTASSIUM 4.2 MEQ/L (3.5-5.1); SODIUM (NA) 137 MEQ/L (136-145)
--- NOTE | 2017-02-13 14:21 | PD ---
Physical Exam Date Seen by Provider: Feb 13, 2017 Narrative Frequent falls Data Data Last Documented VS Vital Signs Date Time Temp Pulse Resp B/P (MAP) Pulse Ox O2 Delivery O2 Flow Rate FiO2 02/13/17 13:16 95 Room Air 02/13/17 13:13 97.9 87 17 Orders Orders Electrocardiogram (02/13/17 13:11) Complete Blood Count With Diff (02/13/17 13:11) Comprehensive Metabolic Panel (02/13/17 13:11) Magnesium (Mg) (02/13/17 13:11) Ckmb (Isoenzyme) Profile (02/13/17 13:11) Troponin I (02/13/17 13:11) Act Partial Throm Time (Ptt) (02/13/17 13:11) Prothrombin Time / Inr (Pt) (02/13/17 13:11) Urinalysis - C+S If Indicated (02/13/17 13:11) Chest, Single Ap (02/13/17 13:11) Ct Brain W/O Iv Contrast(Rout) (02/13/17 13:11) Ecg Monitoring (02/13/17 13:11) Iv Access Insert/Monitor (02/13/17 13:11) Oximetry (02/13/17 13:11) Sodium Chloride 0.9% Flush (Ns Flush) (02/13/17 13:15) Cath For Specimen (02/13/17 13:11) Foot, Complete (Hyp4arn) (02/13/17 13:11) Sodium Chlorid 0.9% 500 Ml Inj (Ns 500 M (02/13/17 13:30) Labs Laboratory Tests Test 02/13/17 13:24 02/13/17 13:34 White Blood Count 10.1 TH/MM3 Red Blood Count 4.28 MIL/MM3 Hemoglobin 13.2 GM/DL Hematocrit 39.8 % Mean Corpuscular Volume 92.9 FL Mean Corpuscular Hemoglobin 30.8 PG Mean Corpuscular Hemoglobin Concent 33.2 % Red Cell Distribution Width 13.5 % Platelet Count 182 TH/MM3 Mean Platelet Volume 8.4 FL Neutrophils (%) (Auto) 81.5 % Lymphocytes (%) (Auto) 7.7 % Monocytes (%) (Auto) 9.4 % Eosinophils (%) (Auto) 1.2 % Basophils (%) (Auto) 0.2 % Neutrophils # (Auto) 8.2 TH/MM3 Lymphocytes # (Auto) 0.8 TH/MM3 Monocytes # (Auto) 0.9 TH/MM3 Eosinophils # (Auto) 0.1 TH/MM3 Basophils # (Auto) 0.0 TH/MM3 CBC Comment DIFF FINAL Differential Comment Prothrombin Time 11.9 SEC Prothromb Time International Ratio 1.2 RATIO Activated Partial Thromboplast Time 29.2 SEC Urine Color YELLOW Urine Turbidity CLEAR Urine pH 5.5 Urine Specific [place] 1.021 Urine Protein 30 mg/dL Urine Glucose (UA) NEG mg/dL Urine Ketones NEG mg/dL Urine Occult Blood MOD Urine Nitrite NEG Urine Bilirubin NEG Urine Urobilinogen LESS THAN 2.0 MG/DL Urine Leukocyte Esterase NEG Urine RBC 12 /hpf Urine WBC 2 /hpf Urine Squamous Epithelial Cells <1 /hpf Urine Hyaline Casts 12 /lpf Urine Mucus FEW /lpf Microscopic Urinalysis Comment CULT NOT INDICATED MDM Supervised Visit with DESIRAE: Yes Narrative Course I, Dr. Rodriguez, have reviewed the advance practice practitioner's documentation and am in agreement, met with the patient face to face, made the diagnosis, and the medical decision making was done by me. *My assessment and Findings: Patient is here with his son because of frequent falls. He has an old contusion to the right side of his head. CBC Diagram 02/13/17 13:24 Please see Alvaro Biswas PA-C's note for results of laboratory and radiographic evaluation, ED course, final diagnosis and disposition Condition: Stable Zoya Rodriguez MD Feb 13, 2017 14:21
[2017-02-13 14:26] LABS: ALKALINE PHOSPHATASE 83 U/L (45-117); ALT (GPT) 25 U/L (12-78); CREATINE KINASE 242 U/L (39-308); TOTAL BILIRUBIN ADULT 0.6 MG/DL (0.2-1.0)
[2017-02-13 14:38] LABS: CKMB 2.1 NG/ML (0.5-3.6)
--- NOTE | 2017-02-13 15:06 | RADRPT ---
EXAM DATE/TIME: 02/13/2017 14:45 [facility] COMPARISON: CT BRAIN W/O CONTRAST, May 13, 2016, 22:05. INDICATIONS : Head pain due to fall. RADIATION DOSE: 56.35 CTDIvol (mGy) MEDICAL HISTORY : Hypertension. Carcinoma, prostate. Dementia.Skin cancer. SURGICAL HISTORY : None. ENCOUNTER: Initial ACUITY: 1 day PAIN SCALE: 2/10 LOCATION: Bilateral cranial TECHNIQUE: Multiple contiguous axial images were obtained of the head. Using automated exposure control and adj ustment of the mA and/or kV according to patient size, radiation dose was kept as low as reasonably a chievable to obtain optimal diagnostic quality images. DICOM format image data is available electro nically for review and comparison. FINDINGS: CEREBRUM: The ventricles are normal for age. No evidence of midline shift, mass lesion, hemorrhage or acute in farction. Elongated lacunar infarct in the medial left thalamus unchanged No extra-axial fluid colle ctions are seen. POSTERIOR FOSSA: The cerebellum and brainstem are intact. The 4th ventricle is midline. The cerebellopontine angle i s unremarkable. EXTRACRANIAL: The visualized portion of the orbits is intact. SKULL: The calvaria is intact. No evidence of skull fracture. CONCLUSION: Normal examination for acute process. 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 Delonte Barnes MD on February 13, 2017 at 15:03 Board Certified Radiologist. This report was verified electronically.
--- NOTE | 2017-02-14 23:17 | EKG ---
Date Performed: 02/13/2017 Time Performed: 15:08:14 PTAGE: 87 years EKG: Sinus rhythm RIGHT BUNDLE BRANCH BLOCK LEFT ANTERIOR FASCICULAR BLOCK POSSIBLE SEPTAL MYOCARDIAL INFARCTION ABNOR MAL ECG Compared to the PREVIOUS TRACING from 05/13/16, rate has decreased DOCTOR: Hector Antoine Interpretating Date/Time 02/14/2017 23:16:29
== END 2017-02-13 20:10 | disposition home or self-care (01) ==
LOC: NEPE 13:02
DX: S00.01XA Abrasion of scalp, initial encounter (principal); M79.674 Pain in right toe(s); F03.90 Unspecified dementia, unspecified severity, without behavioral disturbance, psychotic disturbance, mood disturbance, and anxiety; R94.31 Abnormal electrocardiogram [ECG] [EKG]; I10 Essential (primary) hypertension; Y92.091 Bathroom in other non-institutional residence as the place of occurrence of the external cause; W18.39XA Other fall on same level, initial encounter; Z91.81 History of falling; Z79.01 Long term (current) use of anticoagulants; Z79.899 Other long term (current) drug therapy; Z85.828 Personal history of other malignant neoplasm of skin; Z85.46 Personal history of malignant neoplasm of prostate; Z87.448 Personal history of other diseases of urinary system; Z86.69 Personal history of other diseases of the nervous system and sense organs
CPT/HCPCS: 70450; 71010; 73630; 80053; 81001; 82550; 82552; 83735; 84484; 85025; 85610; 85730; 93005; 96360; 99285; J7040